=== PATIENT | female | born 2005 | race Caucasian/White ===

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

== ENCOUNTER 2024-04-05 09:25 | Emergency (ER) | payer OTHER, SELFPAY ==
[2024-04-05 09:29] VITALS: BP 155/76; PULSE 129; RESP 18; TEMP 37.4; O2SAT 99
--- NOTE | 2024-04-05 09:49 | ED.ASTHMA ---
HPI - Asthma General Chief Complaint: Asthma Stated Complaint: Cough History of Present Illness HPI Narrative: Patient presents with nasal congestion occasional cough. Patient denies any shortness of breath no chest pain no fever no body aches. Patient states she has had nasal congestion for 3 days and has been taking Zyrtec and Flonase for her symptoms. Related Data Home Medications Medication Instructions Recorded Confirmed albuterol 90 mcg/actuation aerosol mcg inhalation 04/05/24 inhaler Allergies Allergy/AdvReac Type Severity Reaction Status Date / Time No Known Allergies Allergy Verified 12/23/23 10:17 Review of Systems Review of Systems: CONSTITUTIONAL: Denies chills, or sweats. Reports fever and generalized body aches EYES: Denies visual changes, redness, or discharge. ENT: Denies otalgia. Reports nasal congestion runny nose and sore throat CARDIOVASCULAR: Denies chest pain, palpitations, or edema. RESPIRATORY: Denies dyspnea. Reports occasional cough GASTROINTESTINAL: Denies abdominal pain, nausea, vomiting, or diarrhea. GENITOURINARY: Denies dysuria or hematuria. SKIN: Denies rash or itching. MUSCULOSKELETAL: Denies back pain, joint pain, or myalgia. Reports generalized body aches NEUROLOGIC: Denies headache, numbness, or weakness. PSYCHIATRIC: Denies anxiety or depression. [facility] Surgical History Surgical History Hx of tonsillectomy Exam Narrative: The patient is a well-developed, well-nourished in no acute distress. SKIN: Skin is warm and dry without erythema, swelling or exudate. There is good turgor. No tenting. HEAD: Atraumatic. Normocephalic. No temporal or scalp tenderness. EYES: Moist and bright. Sclera and conjunctivae normal. No discharge. PERRLA. Extraocular motions intact. Gross visual acuity intact. EARS: Pinna is normal shape and contour. Clear external auditory canals. TM pearly herrera with good cone of light, no erythema or suppuration. Bilateral cerumen noted no gross hearing deficit. NOSE: pink, moist mucosa with good air movement. Clear rhinorrhea without nasal flaring. Septum midline. Mouth: moist mucous membranes. THROAT; mild erythema noted to posterior oropharynx with moderate postnasal drainage. Without exudate or ulceration.. Uvula midline. Normal movement of soft palate. NECK: Supple and nontender with full range of motion without discomfort. No meningeal signs. LUNGS: Equal and bilateral breath sounds without wheezes, rales or rhonchi. CHEST: The chest wall is without retractions or use of accessory muscles. HEART: Has a regular rate and rhythm without murmur, gallops, click or rub. ABDOMEN: Soft, nontender with positive active bowel sounds. No rebound tenderness. EXTREMITIES: Without cyanosis, clubbing or edema. Equal 2+ distal pulses and 2 second capillary refill noted. NEUROLOGIC: alert, active, . The patient moves all extremities with normal muscle strength. Normal muscle tone is noted. Normal coordination is noted. NO focal neurological findings noted. Course Course Level of Care: Express Care Visit Vital Signs Vital signs: Vital Signs Temperature 37.4 C 04/05/24 09:29 Pulse Rate 129 H 04/05/24 09:29 Respiratory Rate 18 04/05/24 09:29 Blood Pressure 155/76 H 04/05/24 09:29 Pulse Oximetry 99 04/05/24 09:29 Oxygen Delivery Room Air 04/05/24 09:29 Temperature 37.4 C 04/05/24 09:29 Pulse Rate 129 H 04/05/24 09:29 Respiratory Rate 18 04/05/24 09:29 Blood Pressure 155/76 H 04/05/24 09:29 Pulse Oximetry 99 04/05/24 09:29 Oxygen Delivery Room Air 04/05/24 09:29 Please MARSHA schedule a followup visit with your personal physician for further evaluation and treatment. Including recheck and discussion of your blood pressure. If your symptoms persist, change or worsen significantly before you can contact your personal physician then please, without delay, go to the emergency department for further evaluation Discharge Plan Discharge Clinical Impression: Upper respiratory infection, viral Patient Disposition: Home, Self-Care Condition: Stable Instructions: Upper Respiratory Infection (DC) Additional Instructions: congestion - flonase am and pm for chronic sinus congestion or prolonged symptoms of sinusitis (takes several days to work). one to three times a day of irrigation of sinus with saline spray, ocean nasal spray or donavan pot. fluids. if you don't have hypertension-afrin nasal spray with a 3 day limit for immediate relief of sinus congestion. for runny nose: do over the counter antihistamine (claritin, benadryl, zyrtec) for sneezing, runny nose. allergies. sudafed or decongestant can also be used, unless you have elevated blood pressure, nursing or . pineapple juice to help thin mucus pain and discomfort: over the counter treatment for pain - tylenol - with a max of 3 grams a day, not to take more than 3-4 days at this dose. discussed aleve - 1-2 am and pm with food. also not to take more than a few days if not improving. patient understands not to take ibuprofen or aleve without food. patient understands ibuprofen max is 4 pills 3 times a day, also not to take this amount for more than a few days if not improving. rest. -If you have any worsening of symptoms or any other concerns please go to the ED immediately. throat pain- gargling with salt water, throat losengers or chloraseptic spray may help with throat pain. if older than 2 years, cough- can try honey for cough if older than one year. mucinex, nyquil, dayquil, robitussin and other otc cold/cough medications can all be used in teenagers and adults with caution. do not mix or use multiple therapies without discussing with your doctor or pharmacy. steam from shower twice daily or cool mist humidifier. pineapple juice to help thin mucus eat yogurt 1-2 times daily or consider probiotics if on antibiotics. -If you have any worsening of symptoms or any other concerns please go to the ED immediately. Prescriptions: No Action albuterol 90 mcg/actuation Aerosol INHALATION Follow-up/Referrals: Larry,Zo Simmons MD [Primary Care Provider] - Stand Alone Forms: Work/School Release IP
== END 2024-04-05 10:17 | disposition home or self-care (01) ==
PROVIDERS: Emergency Provider Nurse Practitioner Family; PCP Pediatrics
DX: J06.9 Acute upper respiratory infection, unspecified (principal)
CPT/HCPCS: 99211; G0463

== ENCOUNTER 2025-04-13 09:08 | Outpatient (CLI) | payer OTHER, SELFPAY ==
--- OUTSIDE RECORDS SUMMARY | 2025-04-13 09:52 | XMS_ITS | Clinical Summary ---
Author Organization [facility] [place] [facility] [address] [place] [address] Care Team Providers Care Rate Engineer Name Role Phone Sandy Plasencia NP Unavailable Bruno Colorado MD Primary Care Provider [phone] Allergies Active Allergy Reactions Criticality Noted Date Comments Hydrocodone Itching Low 12/11/2022 Medications semaglutide (Wegovy) 1.7 mg/0.75 mL auto-injector Inject 1.7 mg under the skin every 7 days 3 mL 3 Active Additional Information Patient not taking.Reported on 01/05/2025 Hospital, Clinic, or Other Facility Administered Medication Ordered Dose Route Frequency Start Date End Date Status etonogestreL (NEXPLANON) implant 68 mgIndications:Pregna ncy Contraception 68 mg subderm Continuous (implanted device) 01/05/2025 01/05/2028 Active Active Problems Problem Noted Date Diagnosed Date Encounter for medical examination to establish c are 07/07/2024 Assessment & Plan (07/07/2024 1:47 PM ROPE MACHINE SETTER): Focus of exam is to establish care. Encourage complete vaping cessastion. Congratulate on wegiht loss. Uptitrate and continue wegovy. Obesity (BMI 30.0-34.9) 07/07/2024 Assessment & Plan (07/07/2024 1:48 PM ROPE MACHINE SETTER): Stable and will continue to follow WEgovy usage. BMI 31.0-31.9,adult 07/07/2024 Assessment & Plan (07/07/2024 1:48 PM ROPE MACHINE SETTER): As above. Anemia 07/07/2024 Assessment & Plan (07/07/2024 1:48 PM ROPE MACHINE SETTER): Update labowkr and review abnormalities and potential etiolgies. Denies bleedign, brusing clinically. Dermatitis associated with moisture 09/25/2023 Assessment & Plan (09/25/2023 10:38 AM CDT): Pelvic exam unremarkable. No erythema or current rash noted to groin area or perineum. I do feel patient's presenting c/os vaginal odor is more a dermatologic condition than a vaginal/urinary issue at this time. Moisture/sweat is most likely trapping bacteria in flexural folds of groin area causing on overgrowth of bacteria which could lead to secondary nick in future. - Continue using Dial soap for bathing. Avoid any perfumed soaps or powders to the vaginal area. - Encouraged all cotton underwear and to avoid tight, constricting clothing, such as leggings. - Can apply a thin layer of antiperspirant to inner thigh/groin area daily, avoid contact with vulva/vagina. - Rx for Nystatin powder sent to pharmacy which may help absorb excess moisture and prevent nick of skin. PCOS (polycystic ovarian syndrome) 12/11/2022 Assessment & Plan (12/11/2022 1:40 PM CDT): Manifested with abnormal periods, hirsutism and obesity No sign of diabetes, and has normal TFT Plan: Refer to child watch attendant. Patient given information of weight loss plan to prevent diabetes. We will check am testosterone Consider adding Metformin Annual screening for diabetes. Cellulitis 08/29/2022 Assessment & Plan (08/30/2022 11:34 AM CDT): Lisseth is a 16 yo female with a history of cellulitis that has persisted despite antibiotic treatment concerning for abscess. Patient was evaluated by [facility] this morning and had an incision and drainage where they expressed a fair amount of pus and obtained a wound culture followed by placing a vessel loop drain. She will continue a 5 day course of antibiotics from the day of source control which is status post incision and drainage this morning. We will transition to p.o. antibiotics and continue to monitor her as she improves. - PO Clindamycin 450 mg TID - s/p IV Clindamycin q8h - Regular diet - Discontinued fluids - Tylenol/Ibuprofen PRN for pain and fevers - f/u MRSA nasal swab Assessment & Plan (08/29/2022 4:34 PM CDT): Lisseth is a 16 yo female with a history of cellulitis that has persisted despite 4-5 days of adequate treatment with clindamycin, 1 week of partial antibiotic treatment, and source control with I&D. Despite initial confusion in BID vs. TID dosing of clindamycin, she is still worsening on adequate treatment and negative culture from I&D not helpful in determining a more appropriate antibiotic agent, so she may benefit from IV abx for outpatient tx failure. She had an x-ray done ED to help rule out osteomyelitis which showed no radiographic evidence. She had an ultrasound which showed some edema of the lower extremity but no drainable fluid collection. We discussed with [facility] however, who state that specifically for abscesses over anterior thompson, they typically do not form a drainable fluid collection but more so spread out. It could be that the soft tissue swelling and edema that was noted on ultrasound is actually pus. She previously had an incision and drainage, and the area was left open to drain so foreign body contamination could also explain why she does not have adequate source control. As such, we will continue with her IV antibiotics and plan for incision and drainage done with our wound care team tomorrow morning. Furthermore, we discussed family history with mother who states that there have been some family members with staph infections in the past but they were unclear whether or not this was due to MRSA. We will send a MRSA nasal swab to see if she is colonized in the event that she clinically worsens we need to expand coverage for concerns of MRSA. - IV Clindamycin q8h - NPO at midnight - I&D with HERVE at 0800 tomorrow, 08/30 - mIVF - Tylenol/Ibuprofen PRN for pain and fevers - f/u MRSA nasal swab Clinical diagnosis of COVID-19 05/18/2021 Clinical diagnosis of COVID-19 05/18/2021 Menorrhagia with regular cycle 04/01/2021 Hirsutism 04/01/2021 Overview (04/01/2021): Labs ordered. Will see if starting the Katyha will help with excessive hair growth. If no improvement, consider adding spironolactone. Depression 04/01/2021 Overview (04/01/2021): Continue fluoxetine as directed by shipfitters supervisor. Advised to d/c smoking marijuana as this may make it hard to evaluate therapeutic effect of medication. Acanthosis nigricans 04/01/2021 Assessment & Plan (12/11/2022 1:41 PM CDT): Chronic , indicative of insulin resistance - we will rule out Simon's with 1 mg dexamethasone suppression test. Chronic tonsillitis 09/02/2017 Assessment & Plan (09/02/2017 6:29 PM CDT): Based on history obtained from the patient's parents in conjunction with my physical findings patient meets indications to undergo Coblation tonsillectomy and adenoidectomy. A thorough discussion took place with both parents and the patient pertaining to the surgical recommendation. Expected postoperative recovery was discussed. All questions were answered to what appeared to be the parents and patient's understanding and satisfaction. After the procedure was explained in full the potential risk, complications, benefits and alternatives patient and parents would like to proceed. Patient will be scheduled in a timely fashion. Otitis media 07/24/2013 Overview (08/16/2016): Otitis media Asthma 07/24/2013 Overview (08/18/2016): Asthma Resolved Problems Problem Noted Date Diagnosed Date Resolved Date Class 3 severe obesity due t o excess calories without serious comorbidity with body mass index (BMI) of 40.0 to 44.9 in adult 12/11/2022 Assessment & Plan (12/11/2022 1:42 PM CDT): Gradual weight gain as part of PCOS - low calorie - low carb diet - refer to child watch attendant. - gradual increase in exercise. Medical examinations/reports status 07/24/2013 08/23/2021 Overview (08/17/2016): Health care maintenance Encounters Date Type Department Care Team Description 01/30/2025 Telephone [facility] [address] [place] [address] Magdalena Munoz, FIREPOT OPERATOR AND TENDER Appointment Reminder Call from Last 3 Months Immunizations Immunization Administration Dates Next Due DTaP 12/22/2009, 6,03/14/2005,12/30,2004 Hep A, Pediatric 09/14/2006,03/15/2006 Hep B / HiB 03/14/2005 Hep B, Adolescent or Pediatric 2004,2004 HiB 12/11/2005,2004,2004 IPV 12/22/2009, 6,2004,11/04 Influenza, Live, Intranasal, Quadrivalent 03/04/2015 Influenza, Quadrivalent, Spl it, Preservative Free, Intramuscular 04/03/2019 Influenza, Trivalent, IM (MDV) 03/26/2014 Influenza, Unspecified 03/26/2014,04/11/2005,05/2004 MMR 12/22/2009,09/11/2005 Meningococcal A,C,W,Y-TT (Ak a Menquadfi) 03/25/2021 Meningococcal Conjugate (Menveo) 11/24/2015 Pneumococcal, Unspecified 12/11/2005,05/2004,2004,11/04 Tdap 01/27/2016 Varicella 12/22/2009,09/11/2005 Surgical History Surgery Date Site/Laterality Comments OTHER SURGICAL HISTORY 8-2 39 wk 27 y : Born nl vag deliv OTHER SURGICAL HISTORY ALTE age 4 mos: Admit LP, CT, EEG, echo MYRINGOTOMY W/ TUBES TONSILLECTOMY Medical History Medical History Date Comments Hx Other Medical 2005 8-2 39 wk 28 y ; Outcome: 8 & 9 Hx Other Medical 2004 ALTE age 4 mos Hx Other Medical 2007 FX L clavicle Hx Other Medical 2006 Ear tubes Hx Other Medical asthma Sleep apnea SIDS (sudden infant syndrome) 3 months; [facility]; resolved Tonsillitis Multiple Strept Throats Family History Medical History Relation Name Comments Other Brother Ebenezer Heart murmer; Hypertension Father Hypertension; Other Mother MVP; Thyroid disease Mother Relation Name Status Comments Brother Ebenezer Father Mother Social History Tobacco Use Types Packs/Day Years Used Date Smoking Tobacco: Never Smokeless Tobacco: Never Tobacco Cessation:Counseling Given: Not Answered AUDIT-C Answer Date Recorded Q1: How often do you have a drink containing alc ohol? Never 10/30/2022 Average Number of Drinks Not on file 023 Frequency of Binge Drinking Not on file 10/12 PHQ-2 Answer Date Recorded PHQ-2 Total Score (If total score is 3 or more points, staff should administer the PHQ-9) 0 12/08/2024 Hunger Vital Sign Answer Date Recorded Within the past 12 months, y ou worried that your food would run out before you got the money to buy more. Never true 10/03/19 23 Within the past 12 months, t he food you bought just didn't last and you didn't have money to get more. Never true 10/02/2022 Personal Safety Answer Date Recorded Have you ever been in or are you currently in a harmful physical or emotional relationship or is someone making you feel afraid or unsafe? Denies 08/29/2022 Comments No Sex and Gender Information Value Date Recorded Sex Assigned at Not on file Legal Sex Female 9:14 AM ROPE MACHINE SETTER Gender Identity Not on file Sexual Orientation Not on file Obstetrics History Para Term AB IAB SAB Ectopic Multiple Livin g Live Births 0 0 0 0 0 0 0 0 0 0 0 Last Filed Vital Signs Vital Sign Reading Time Taken Comments Blood Pressure 100/60 01/05/2025 11:41 AM CDT Pulse 75 07/07/2024 1:23 PM ROPE MACHINE SETTER Temperature 36.7 C (98.1 F) 07/07/2024 1:23 PM ROPE MACHINE SETTER Respiratory Rate 18 07/07/2024 1:23 PM ROPE MACHINE SETTER Oxygen Saturation 99% 07/07/2024 1:23 PM ROPE MACHINE SETTER room air Inhaled Oxygen Concentration - - Weight 76.2 kg (168 lb) 01/05/2025 11:41 AM CDT Height 165.1 cm (5' 5) 01/05/2025 11:41 AM CDT Body Mass Index 27.96 01/05/2025 11:41 AM CDT Plan of Treatment Health Maintenance Due Date Last Done Comments Hepatitis C Screening 2004 HPV Vaccines (1 - 3-dose series) 09/11/2019 Meningococcal B Vaccine (1 o f 2 - Standard) 2020 Pneumococcal vaccine <65 (1 of 2 - PCV) 09/11/2023 12/11/2005, 03/14/2005, 2004, Additional history exists Covid-19 Vaccine (2024-2 6 season) 2025 12/21/2021, 12/29/2020, 12/06/2020 Influenza Vaccine (#1) 2025 9, 03/04/2015, 03/26/2014, Additional history exists Depression Screening 12/08/2025 12/08/2024, 07/07/2024, 08/12/2017, Additional history exists Regular Well Visit/Exam 18-64 12/08/2025 12/08/2024 DTaP/Tdap/Td Vaccine (7 - Td or Tdap) 01/26/2026 01/27/2016, 12/22/2009, 12/11/2005, Additional history exists Hepatitis B Screening Completed 03/14/2005 , 2004, 2004 Varicella Vaccines Completed 12/22/2009, 09/11/2005 Meningococcal Vaccine Completed 03/25/2021, 016 Insurance [facility] CIGNA CIGNA CIGNA CIGNA CIGNA CIGNA Advance Directives For more information, please contact: [phone] * Full Code (Latest Code Status on File) Date Activated Date Inactivated Comments 08/29/2022 1:01 PM 08/31/2022 3:54 PM Care Teams Rate Engineer Relationship Specialty Start Date End Date Bruno Colorado MD [address] [place] [id number] PCP - General Family Medicine 07/07/24 Sandy Plasencia NP Nurse Practitioner Emergency Medicine 08/18/22
[2025-04-13 10:27] LABS: Iron 34 ug/dL (37-170)
[2025-04-13 10:28] LABS: Albumin Level 4.3 g/dL (3.5-5.1); Anion Gap 5 mmol/L (4-12); Blood Urea Nitrogen 11 mg/dL (7-17); Calcium 9.4 mg/dL (8.4-10.2); Carbon Dioxide 24 mmol/L (22-30); Chloride 107 mmol/L (98-107); Estimated Glomerular Filt Rate > 60; Glucose 85 mg/dL (65-110); Potassium 3.9 mmol/L (3.4-5.0); Sodium 136 mmol/L (137-145)
[2025-04-13 10:44] LABS: Prealbumin 20.3 mg/dL (17.6-36.0)
[2025-04-16 18:08] LABS: Vit. B1, Whole Blood 124.7 nmol/L (66.5-200.0)
== END 2025-04-13 09:09 | disposition home or self-care (01) ==
PROVIDERS: PCP Pediatrics; Visit Provider Surgery Plastic and Reconstructive Surgery
DX: R63.4 Abnormal weight loss (principal)
CPT/HCPCS: 36415; 80048; 82040; 83540; 84134; 84425

== ENCOUNTER 2025-04-20 14:19 | Outpatient (CLI) | payer OTHER, SELFPAY ==
[2025-04-20 14:55] LABS: Hematocrit 38.9 % (37.0-47.0); Hemoglobin 12.5 g/dL (12.0-15.0); Mean Corpuscular HGB Conc 32.1 g/dl (32-36); Mean Corpuscular Hemoglobin 25.6 pg (26-34); Mean Corpuscular Volume 79.6 fl (80-100); Platelet Count Result 394 k/mm3 (150-375); Red Blood Count 4.89 M/mm3 (4.2-5.4); White Blood Count 8.1 K/mm3 (4.5-10.0)
== END 2025-04-20 14:20 | disposition home or self-care (01) ==
PROVIDERS: Visit Provider Surgery Plastic and Reconstructive Surgery
DX: R63.4 Abnormal weight loss (principal)
CPT/HCPCS: 36415; 85027

== ENCOUNTER 2025-05-11 05:56 | Day surgery (SDC) | payer OTHER, SELFPAY ==
[2025-04-27 10:11] VITALS: BMI 32.3
[2025-05-11] VITALS (10 sets, daily range): BP systolic 106–146; BP diastolic 59–91; PULSE 71–90; RESP 16–18; TEMP 36.9–37.3; O2SAT 94–100
[2025-05-11] MEDS: LACTATED RINGERS 1,000 ML 30 ML IV CONT ×2 (06:33→10:07)
[2025-05-11] MEDS: TRANEXAMIC ACID 1,000 MG/10 ML AMPUL 1000 MG IV PUSH (06:33)
--- NOTE | 2025-05-11 07:18 | WPDHPUPDATE1 ---
History and Physical Update Update Date/Time: 05/11/25 07:18 History and Physical has been reviewed, including an updated exam of the patient. There are NO changes in the patient's condition. Risks, benefits, and alternatives have been discussed and questions answered. Patient agrees to proceed with procedure.
--- NOTE | 2025-05-11 07:18 | W.PM.PROC2 ---
Procedure Note - Detailed Date of Procedure 05/11/25 Pre-op Diagnosis Micromastia and Breast Ptosis Post-op Diagnosis Same Procedure Performed Bilateral Augmentation Mastopexy Surgeon Shawn Oconnor MD Anesthesia General Findings Bilateral Zeinab Saline 480cc filled to 510cc Right: REF# [id number] SN [id number] Left: REF# [id number] SN [id number] Description of Procedure She is here today for bilateral breast augmentation mastopexy. Previously and again today the risks, benefits, alternatives were discussed in extensive detail. I wanted her to be very realistic about the risks involved as well as expectations. Discussed saline implant placement subfascial again and risks involved. We discussed aftercare and what to monitor for. Made sure answered all of her questions to her satisfaction today and consent was obtained. Marked in the preoperative holding area with their verification. The patient was taken to the operating room placed supine on the operating table. Anesthesia was provided by anesthesiology. A surgical time-out was taken. She was prepped and draped in a standard sterile fashion. Tumescent was utilized laterally to provide field block Tegaderm nipple Hinojosa were placed. A 15 blade used to make an incision just superior to the inframammary fold leaving a cusp of de-epithelized tissue at the t junction. Dissection was continued until the chest wall as identified. I elevated a subfascial pocket in the appropriate dimensions based on our preoperative planning for the implant. I then copiously irrigated with saline solution and verified a strict hemostasis. Next the use a triple antibiotic and Betadine containing solution to irrigate the pocket. I washed my gloves with the triple antibiotic and Betadine solution. We washed the implant immediately upon opening it with this solution and only opened it when we needed it. On the back table I prepped the implant to remove all air. It was introduced into the pocket and utilizing an implant fill kit filled to the volume above. The fill tubing was removed and I verified the valve sealed. Having verified positioning of the implant this was closed using 2-0 PDS. I tailor tacked the breast into position. Placed her in a sitting position. Verified the nipple-areolar location based on preoperative planning as well as intraoperative observations and measurements in full agreement. Suction lipectomy was completed laterally with a 4mm adleine cannula. This was based on preoperative planning, intraoperative observation, and rolling pinch which was in full agreement. She was placed supine. I de-epithelialized the pedicle. I then removed the inferior central portion of the breast need making sure the implant was well protected. I elevated medial and lateral tissue flaps as well for planned closure. Secured the IMF with 2-0 PDS. I closed along the IMF with 2-0 PDS. Along the vertical with 2-0 PDS. I closed around the areola and the vertical incision with 3-0 Monocryl. 3-0 Stratafix along the IMF. I finally closed everything with running subcuticular 4-0 Monocryl and tissue glue. Fluffs and surgical bra were placed. Estimated Blood Loss 20 Drains No Packing No Pathology None sent Complications No immediate complications Condition Stable Disposition PACU
--- NOTE | 2025-05-11 07:21 | WPDANESEPPF ---
Anes - Initial Pre Proc Eval Procedure: Operation Date: 05/11/25 07:30 Proposed Procedures p Bilateral Breast Augmentation Mammoplasty - Shawn Oconnor MD s Bilateral Breast Mastopexy - Shawn Oconnor MD Date/Time: 05/11/25 07:21 Surgeon: Shawn Oconnor MD Pre Op Diagnosis: Micromastia and Breast Ptosis Patient Data Age: 19 Gender: F Height: 1.65 m Weight: 92.8 kg Last Vital Signs Temp 99.2 F 05/11/25 06:20 Pulse 81 05/11/25 06:20 Resp 16 05/11/25 06:20 BP 135/84 05/11/25 06:20 Pulse Ox 100 05/11/25 06:20 O2 Del Method Room Air 05/11/25 06:20 Allergies Allergy/AdvReac Type Severity Reaction Status Date / Time oxycodone AdvReac Rash Verified 05/11/25 06:19 Home Medications ?Medication ?Instructions ?Recorded ?Confirmed ?Type No Home Medications 04/27/25 05/11/25 History Patient hx anesthesia problems: none Family hx anesthesia problems: none Results Review: All pre-operative results and documents have been reviewed as part of the pre-operative evaluation. [facility] Surgical History Surgical History Hx of tonsillectomy Social History Social History Smoking status: Current every day smoker Tobacco type: e-cigarettes/vaping Alcohol intake: never Substance use: current Substance use type: marijuana Other substance usage details: 3-4 NIGHTS A WEEK - SMOKES Living arrangements: with family Spiritual care concerns: No Anes - Eval Final PreProcedure Day of Procedure 05/11/25 07:21 Heart: regular rate and rhythm Lungs: clear to auscultation Airway: Mallampati scale class III Neurological: alert and oriented Last oral intake: >/= 8 hours ASA classification: II Anesthetic plan: proceed Anesthesia type and monitoring: general Results Review: All pre-operative results and documents have been reviewed as part of the pre-operative evaluation. Informed Consent: The patient's anesthetic plan and its attendant risks and benefits were discussed with the patient/family/POA. Questions were solicited and answers provided to the satisfaction of the patient/family/POA.
[2025-05-11] MEDS: SCOPOLAMINE 1 MG PATCH 1 PATCH (07:25)
[2025-05-11] MEDS: SCOPOLAMINE 1 MG PATCH 1.5 PATCH TRANSDERM (07:25)
--- NOTE | 2025-05-11 07:26 | SUR.PREOP ---
FEMALE STAFF IN ROOM WHILE DR ROSS MARKED PT. PT'S MOTHER ALSO AT BEDSIDE
[2025-05-11] MEDS: ceFAZolin SODIUM 2 GM/20 ML SW SYRINGE IV PUSH (07:40)
[2025-05-11] MEDS: LIDOCAINE 1% LOCAL INJ 20 ML VIAL 60 ML (08:09)
[2025-05-11] MEDS: GENTAMICIN SULFATE INJ 80 MG/2 ML VIAL 160 MG (08:10)
[2025-05-11] MEDS: TRANEXAMIC ACID 1,000 MG/10 ML AMPUL 1000 MG (08:12)
[2025-05-11] MEDS: EPINEPHrine HCL INJ 1 MG/ML AMPUL (08:13)
[2025-05-11] MEDS: fentaNYL CITRATE INJ (*CRX) 100 MCG/2 ML VIAL 25 MCG IV PUSH ×2 (10:42→10:46)
[2025-05-11] MEDS: ACETAMINOPHEN 500 MG TABLET 1000 MG PO (11:23)
== END 2025-05-11 11:42 | disposition home or self-care (01) ==
PROVIDERS: PCP Family Medicine; Visit Provider Surgery Plastic and Reconstructive Surgery
PROC: (CPT 19325; principal; 2025-05-11 07:30)
PROC: (CPT 19316; 2025-05-11 07:30)
DX: Z41.1 Encounter for cosmetic surgery (principal); N64.82 Hypoplasia of breast
CPT/HCPCS: 19325; 19316; J3290